=== PATIENT | male | born 1960 | race Caucasian/White ===

== ENCOUNTER 2024-01-17 19:59 | Emergency (ER) | payer OTHER ==
[2024-01-17] MEDS: Lidocaine 1% with EPINEPHrine 1:100,000 50 ML MDV SUBCUT STA (21:29)
[2024-01-17] MEDS: Bacitracin Oint 1 GM U/D Packet TOP ONE (21:29)
== END 2024-01-17 21:16 | disposition home or self-care (01) ==
LOC: JP.ED 19:59
DX: S81.812A Laceration without foreign body, left lower leg, initial encounter (principal); I10 Essential (primary) hypertension; E78.00 Pure hypercholesterolemia, unspecified; Z79.899 Other long term (current) drug therapy; W22.02XA Walked into lamppost, initial encounter
CPT/HCPCS: 12004; 99282